=== PATIENT | male | born 1955 | race Caucasian/White ===

== ENCOUNTER 2017-12-31 09:05 | Outpatient (CLI) ==
--- NOTE | 2017-12-31 22:27 | MRI ---
EXAM: Lumbar spine MRI without contrast. HISTORY: Lower extremity weakness. COMPARISON: None. TECHNIQUE: Multiplanar, multisequence MR images were acquired lumbar spine without contrast. FINDINGS: Conus medullaris ends at L1 and has normal morphology and normal signal intensity. Canal diameter is developmentally narrow. Five [id number] lumbar vertebra are present. There is chiqui r mid lumbar levoscoliosis and 1.5 mm retrolisthesis of L1 on L2, 2 mm retrolisthesis of L2 on L3 and 3.7 mm retrolisthesis of L5 on S1. The superior endplate of S1 is smaller than the inferior endplat e of L5. Small ventral and lateral osteophytes are present in the lumbar spine and there is disc ami iccation at L1-2 and L5-S1 with mild irregular concavity of the endplates at L1-2 and L2-3. There is a chronic Schmorl's node along the L1 inferior endplate. There is a small chronic Schmorl's node al wilman the posterior L2 inferior endplate with a rim of dark T1, T2 and STIR signal sclerosis and surrou nding bright STIR signal edema. There is mild bright STIR signal in the adjacent intervertebral disc that may represent residual hydration or edema. Edema is favored. This may represent a recent Schm orl's node formation. There is moderate posterior disc space narrowing at L5-S1. The partially visualized liver, spleen and left kidney are unremarkable. A 6 mm simple cyst is prese nt in the right kidney. L1-2: There is a mild disc bulge and small left paracentral disc extrusion with inferior migration. In this patient with a narrow canal, there is mild right and mild to moderate left neural foraminal stenosis. There is no central canal stenosis. L2-3: There is a diffuse disc bulge with small left far endplate osteophytes and mild bilateral hype rtrophic facet arthropathy and ligamentum flavum hypertrophy. This causes mild spinal stenosis and m ild to moderate left and moderate right neural foraminal stenosis with encroachment on both L2 nerves . AP diameter of the thecal sac is 7.3 mm. L3-4: There is a mild disc bulge and bilateral facet arthropathy and ligamentum flavum hypertrophy. There is mild right and minor left neural foraminal stenosis. L4-5: There is a diffuse disc bulge and a small central disc protrusion. Mild to moderate bilateral facet arthropathy and ligamentum flavum hypertrophy is present which produces narrowing of the poste rolateral thecal sac without central canal stenosis. There is mild to moderate right and mild left n eural foraminal stenosis. L5-S1: There is retrolisthesis of L5 on S1 and there is a minor diffuse disc osteophyte complex that is asymmetric to the left and a small more focal central component. There is mild left and minor ri ght foraminal stenosis. There is no central canal stenosis. IMPRESSION: 1. Mild to moderate lumbar degenerative spondylosis with mild spinal stenosis at L2-3. 2. Small disc herniations L1-2 and L4-5. 3. Multilevel foraminal stenosis.
--- NOTE | 2017-12-31 23:09 | MRI ---
EXAM: Cervical spine MRI without contrast. HISTORY: Lower extremity weakness. COMPARISON: None. TECHNIQUE: Multiplanar, multisequence MR images were acquired of the cervical spine without contrast . FINDINGS: The craniocervical junction is normal and the cervical cord has no abnormal T2 hyperintens ity. There is mild accentuation of the usual cervical lordosis and 1.5 mm retrolisthesis of C3 on C4 and C4 on C5. The cervical vertebra are normal in height. Intrinsic bone marrow signal is mildly h eterogeneous with small areas of increased fatty infiltration. There is ventral spondylosis with min or degenerative endplate changes and disc space narrowing at C3-4 and C4-5. At C5-6, there is osteop hytosis with disc space narrowing, endplate irregularity and moderate mixed modic type 1 and type 2 e ndplate changes. There is a 3 mm cyst in the left false focal fold. There are no paravertebral masses . Minor left apical pleural thickening is present. C2-3: The intervertebral disc is normal. C3-4: There is a posterior disc osteophyte complex that is asymmetric to the left with a small centr al and left paracentral disc protrusion that minimally indents the cervical cord. Ligamentum flavum hypertrophy, bilateral uncovertebral hypertrophy and mild bilateral facet arthropathy is present. Th ere is mild spinal stenosis and mild right and moderate left neural foraminal stenosis. AP diameter of the thecal sac is 8.5 mm. C4-5: There is a posterior disc osteophyte complex and small central disc extrusion that minimally i ndents the cervical cord. Ligamentum flavum hypertrophy, bilateral uncovertebral hypertrophy and mil d right and minor left facet arthropathy is present. There is minor central canal stenosis and sever e bilateral foraminal stenosis. AP diameter of the thecal sac is 9.4 mm. C5-6: There is a posterior disc osteophyte complex, ligamentum flavum hypertrophy and bilateral hype rtrophic facet arthropathy. There is minor spinal stenosis and moderate left and severe right neural foraminal stenosis. AP diameter of the thecal sac is 9.6 mm. C6-7: There is a diffuse disc osteophyte complex that mildly indents the cervical cord. Ligamentum flavum hypertrophy and bilateral uncovertebral hypertrophy are present. There is mild spinal stenosi s and moderate bilateral foraminal stenosis. AP diameter of the thecal sac is 8.6 mm. C7-T1: There is a minor left posterior disc bulge without central canal stenosis. Neural foramina a re patent. IMPRESSION: 1. Mild to moderate cervical degenerative spondylosis with minor C4-5 and C5-6 and mild C3-4 and C6- 7 central canal stenosis. 2. Small disc herniations C3-4 and C4-5. 3. Multilevel high-grade foraminal stenosis.
== END 2017-12-31 09:06 | disposition home or self-care (01) ==
LOC: RAD 09:05
PROVIDERS: ATTEND Family Medicine
DX: R29.898 Other symptoms and signs involving the musculoskeletal system (principal)

== ENCOUNTER 2022-11-06 04:31 | Inpatient (IN) ==
[2022-11-06] MEDS ORDERED: MORPHINE 4 MG/ML SYRINGE IVP ONE (04:58)
[2022-11-06] MEDS ORDERED: SODIUM CHLORIDE 1,000 ML IV STA ×2 (04:58→06:30)
--- NOTE | 2022-11-06 05:16 | ED.PDOC ---
General <FAUSTINO RODRIGUEZ MD - Last Filed: 11/11/22 04:05> ED Provider: Dr. FAUSTINO RODRIGUEZ MD Chief Complaint: Abdominal Pain Stated Complaint: abdominal pain, nuasea and vomiting for 1-2 days. Time Seen by Provider: 11/06/22 04:58 Mode of Arrival: Walk-In Information Source: Patient and Family Exam Limitations: No limitations Primary Care Provider: BILLIE CHIRINOS Seen Within Last 72 Hours for Same Complaint By: ED Nursing and Triage Documentation Reviewed and Agree: Yes Does patient meet sepsis criteria?: No System Inflammatory Response Syndrome: Not Applicable Sepsis Protocol: For patient's 13 years and over: Temp is 96.8 and below OR 101 and greater Pulse >90 BPM Resp >20/minute Acutely Altered Mental Status Are patient's symptoms suggestive of a new infection, such as: -Pneumonia -Skin, Soft Tissue -Endocarditis -UTI -Bone, Joint Infection -Implantable Device -Acute Abdominal Infection -Wound Infection -Meningitis -Blood Stream Catheter Infection -Unknown GI Complaint Exam <FAUSTINO RODRIGUEZ MD - Last Filed: 11/11/22 04:05> Abdominal Pain Complaint/Exam Onset: Sudden Duration: 2 days Symptoms Are: Still present Timing: Constant Initial Severity: Moderate Current Severity: Moderate Location of Pain: Diffuse Character: Reports Aching and Burning Aggravating: Reports Eating Alleviating: Reports None Associated Signs and Symptoms: Denies Diaphoresis, Fever, Cough, Chest pain, Dizziness, Back pain, Constipation or Blood in stool AAA Risk Factors: Reports None Cardiac Risk Factors: Reports Hypertension and Elevated lipids Testicular Torsion Risk Factors: Reports None Surgical Obstruction Risk Factors: Reports Bilious emesis and Prior abdominal surgery Related Surgical History: Reports Cholecystectomy and Appendectomy Abdominal Findings: Present None; Absent Pulsatile mass, Abdominal distention, Rebound tenderness or Peritoneal signs Differential Diagnoses: ACS, Bowel Obstruction, Diverticulitis, Gastroenteritis, Pancreatitis, Irritable Bowel Syndrome, Ureteral Stone, Ischemic Bowel and PUD Review of Systems <FAUSTINO RODRIGUEZ MD - Last Filed: 11/11/22 04:05> Review Of Systems Constitutional: Reports No symptoms; Denies Chills, Diaphoresis or Fever Eyes: Reports No symptoms Ears, Nose, Mouth, Throat: Reports No symptoms Respiratory: Reports No symptoms Cardiac: Reports No symptoms GI: Reports Abdominal pain, Nausea and Vomiting; Denies Diarrhea, Difficulty swallowing or Rectal bleeding : Reports No symptoms Musculoskeletal: Reports No symptoms Skin: Reports No symptoms Neurological: Reports No symptoms Endocrine: Reports No symptoms Hematologic/Lymphatic: Reports No symptoms All Other Systems: Reviewed and Negative PFSH <FAUSTINO RODRIGUEZ MD - Last Filed: 11/11/22 04:05> Medical History (Updated 11/06/22 @ 09:48 by LM MARY) Collapsed lung J98.19 - Other pulmonary collapse (ICD-10) COPD (chronic obstructive pulmonary disease) J44.9 - Chronic obstructive pulmonary disease, unspecified (ICD-10) GERD (gastroesophageal reflux disease) K21.9 - Gastro-esophageal reflux disease without esophagitis (ICD-10) Hypertension I10 - Essential (primary) hypertension (ICD-10) Pulmonary embolism I26.99 - Other pulmonary embolism without acute cor pulmonale (ICD-10) Family History Other No known health problems Social History Smoking and tobacco status: Former smoker Smokeless tobacco user: chewing tobacco Alcohol intake: current Substance use type: does not use Varsha/orthodoxy: NONDENOMINATIONAL Household members: spouse Housing: house Lives independently: Yes Number of children: 2 Number of grandchildren: 3 Highest education level completed: some college, no degree service: No Current occupational status: retired Previous occupational history: SourceMedical Leisure activites: fishing History of recent travel: No Sexually active: Yes Do you think of yourself as: straight/heterosexual Current gender identity: male Seatbelt use: always Drives intoxicated or rides with intoxicated 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 Water heater temperature set < 120 degrees: Yes Working smoke detector in home: Yes Fire extinguisher in home: Yes Surgical History History of appendectomy Z90.49 - Acquired absence of other specified parts of digestive tract (ICD- 10) Hx of cholecystectomy Z90.49 - Acquired absence of other specified parts of digestive tract (ICD- 10) Physical Exam <FAUSTINO RODRIGUEZ MD - Last Filed: 11/11/22 04:05> Physical Exam Appearance: Reports Ill-appearing and Well-nourished Ill-appearing: Mild Pain Distress: Mild Eyes: Reports AMELIE, EOMI and Conjunctiva clear ENT: Reports Not Examined Neck: Supple Respiratory: Reports Airway patent, Breath sounds clear and Breath sounds equal; Denies Crackles, Rhonchi, Wheezes or Retractions Cardiovascular: Reports RRR and No murmur GI/: Reports Soft, Bowel sounds normal and Tender Musculoskeletal: Reports Not Examined Skin: Reports Warm and Dry Neurological: Reports Alert, Oriented and Not Examined Psychiatric: Reports Affect appropriate Interpretation <FAUSTINO RODRIGUEZ MD - Last Filed: 11/11/22 04:05> EKG Interpretation EKG Interpretation By: ED Physician Time of EKG #1: 05:06 Rate: Normal Rhythm: Sinus Ectopy: None [employer]: [place] Segment: Normal EKG Comparison: No significant changes <LYNN JOEL MD - Last Filed: 11/13/22 13:05> EKG Interpretation EKG Interpretation By: ED Physician Time of EKG #2: 07:15 Rate: Normal (77) Rhythm: Sinus Ectopy: None [employer]: [place] Segment: Normal EKG Interpretation: Nonspecific intraventricular block EKG Comparison: No significant changes (EKG interpretation by ED physician) Critical Care Note <FAUSTINO RODRIGUEZ MD - Last Filed: 11/11/22 04:05> Critical Care Note Total Critical Care Time (mins): 0 Course <FAUSTINO RODRIGUEZ MD - Last Filed: 11/11/22 04:05> Course 11/08/22 04:48 11/08/22 04:48 Orders, Labs, Meds: Lab Review 11/06/22 11/06/22 11/06/22 03:25 05:15 05:50 WBC 9.26 RBC 5.02 Hgb 16.4 Hct 46.6 MCV 92.8 MCH 32.7 H MCHC 35.2 RDW Coeff of [place] 12.8 Plt Count 236 Immature Gran % (Auto) 0.2 Neut % (Auto) 77.0 H Lymph % (Auto) 15.2 [place]ole % (Auto) 7.3 Eos % (Auto) 0.2 Baso % (Auto) 0.1 Neut # (Auto) 7.1 H Lymph # (Auto) 1.4 [place]ole # (Auto) 0.7 Eos # (Auto) 0.0 Baso # (Auto) 0.0 Immature Gran # (Auto) 0.0 Sodium 126.5 L Potassium 4.93 Chloride 94.1 L Carbon Dioxide 28.9 Anion Gap 8.43 BUN 7.6 L Creatinine 0.79 Estimated GFR (MDRD) 98.00 BUN/Creatinine Ratio 9.62 Glucose 115.6 H Serum Osmolality 260 L Lactic Acid 1.26 Calcium 9.27 Total Bilirubin 1.05 AST 24.0 ALT 23.3 Alkaline Phosphatase 76.2 Troponin I < 0.012 Total Protein 6.86 Albumin 4.16 Globulin 2.70 Albumin/Globulin Ratio 1.54 Lipase 285.2 Urine Color Urine Clarity Urine pH Ur Specific [place] Urine Protein Urine Glucose (UA) Urine Ketones Urine Blood Urine Nitrite Urine Bilirubin Urine Urobilinogen Ur Leukocyte Esterase Ur Squamous Epith Cells Urine Osmolality 262 11/06/22 06:10 WBC RBC Hgb Hct MCV MCH MCHC RDW Coeff of [place] Plt Count Immature Gran % (Auto) Neut % (Auto) Lymph % (Auto) [place] % (Auto) Eos % (Auto) Baso % (Auto) Neut # (Auto) Lymph # (Auto) [place] # (Auto) Eos # (Auto) Baso # (Auto) Immature Gran # (Auto) Sodium Potassium Chloride Carbon Dioxide Anion Gap BUN Creatinine Estimated GFR (MDRD) BUN/Creatinine Ratio Glucose Serum Osmolality Lactic Acid Calcium Total Bilirubin AST ALT Alkaline Phosphatase Troponin I Total Protein Albumin Globulin Albumin/Globulin Ratio Lipase Urine Color Yellow Urine Clarity Clear Urine pH 6.5 Ur Specific [place] 1.010 Urine Protein Negative Urine Glucose (UA) Negative Urine Ketones 1+ H Urine Blood Trace-intact H Urine Nitrite Negative Urine Bilirubin Negative Urine Urobilinogen 0.2 Ur Leukocyte Esterase Negative Ur Squamous Epith Cells Not present Urine Osmolality Orders Category Date Time Status ADMIT PATIENT INPATIENT .TO [facility] (MONITORED BED) ADMISSION 11/06/22 08:11 Completed EKG-(ED ONLY) Stat CARDIO 11/06/22 04:58 Completed EKG-(ED ONLY) Stat CARDIO 11/06/22 06:36 Completed ACTIVITY .Early Mobilization for VTE Prevention CARE 11/06/22 08:11 Completed INTAKE & OUTPUT Q8HR CARE 11/06/22 08:11 Completed NPO REMINDER: IMAGING ONCE CARE 11/06/22 04:58 Completed TELEMETRY MONITORING TELE CARE 11/06/22 08:11 Completed VITAL SIGNS Q8HR CARE 11/06/22 08:11 Completed CBC W/ AUTO DIFF DAILY@0600 LAB 11/07/22 04:40 Completed CBC W/ AUTO DIFF DAILY@0600 LAB 11/08/22 04:48 Completed CBC W/ AUTO DIFF Stat LAB 11/06/22 05:15 Completed CMP [COMPREHENSIVE METABOLIC PANEL] Stat LAB 11/06/22 05:15 Completed COMPREHENSIVE METABOLIC PANEL DAILY@0600 LAB 11/07/22 04:40 Completed COMPREHENSIVE METABOLIC PANEL DAILY@0600 LAB 11/08/22 04:48 Completed LACTIC ACID Stat LAB 11/06/22 05:15 Completed LIPASE Stat LAB 11/06/22 05:15 Completed OSMOLALITY,URINE Routine LAB 11/06/22 03:25 Completed SERUM OSMOLALITY Routine LAB 11/06/22 03:25 Completed SODIUM,URINE Routine LAB 11/06/22 13:50 Completed TROPONIN I Stat LAB 11/06/22 05:50 Completed URINALYSIS C & S IF INDICATED Stat LAB 11/06/22 06:10 Completed Acetaminophen [Tylenol] Meds 11/06/22 08:11 Discontinued 650 mg PO Q4H PRN Ketorolac Tromethamine [Toradol] Meds 11/06/22 06:30 Discontinued 30 mg IVP ONCE STA Metoclopramide HCl [Reglan] Meds 11/06/22 06:30 Discontinued 10 mg IVP ONCE ONE Morphine Sulfate [Morphine 4 mg/ml Syringe] Meds 11/06/22 04:58 Discontinued 4 mg IVP ONCE ONE Ondansetron HCl/Pf [Zofran 4 mg/2 ml] Meds 11/06/22 08:14 Discontinued 4 mg IVP Q6H PRN Sodium Chloride 0.9% [Sodium Chloride] 1,000 ml Meds 11/06/22 08:30 Discontinued IV 125 mls/hr Sodium Chloride 0.9% [Sodium Chloride] 1,000 ml Meds 11/06/22 04:58 Discontinued IV BOLUS Sodium Chloride 0.9% [Sodium Chloride] 1,000 ml Meds 11/06/22 06:30 Discontinued IV BOLUS RESUSCITATION STATUS Routine OTHERS 11/06/22 08:[address] ABDOMEN/PELVIS W CONTRAST Stat RADS 11/06/22 04:58 Completed Medications Discontinued Medications Generic Name Dose Route Start Last Admin Trade Name Freq PRN Reason Stop Dose Admin Acetaminophen 650 mg 11/06/22 08:11 Acetaminophen 325 Mg Tablet PO Q4H PRN Mild Pain Albuterol Sulfate 2 puff 11/06/22 09:20 11/08/22 07:50 Albuterol Sulfate 8 Gm Inhaler IH 2 puff Q4H PRN Administration Wheezing Apixaban 5 mg 11/06/22 09:30 11/08/22 09:40 Apixaban 5 Mg Tab PO 5 mg BID CAMILLA Administration Atorvastatin Calcium 40 mg 11/06/22 17:00 11/07/22 01:25 Atorvastatin Calcium 20 Mg Tablet PO Not Given QPM CAM[place]A Atorvastatin Calcium 40 mg 11/06/22 21:00 11/07/22 20:43 Atorvastatin Calcium 20 Mg Tablet PO 40 mg BEDTIME [place]A Administration Baclofen 5 mg 11/06/22 09:30 11/08/22 09:39 Baclofen 10 Mg Tablet PO 5 mg BID [place] Administration Famotidine 20 mg 11/07/22 10:00 11/08/22 05:33 Famotidine 20 Mg Tablet PO 20 mg BIDAC [place] Administration Fluticasone Propionate 1 spray 11/06/22 09:20 11/08/22 07:48 Fluticasone Propionate 16 Gm Nasal Carney FAHAD 1 spray DAILY PRN Administration Allergy Symptoms Sodium Chloride 1,000 mls @ 1,000 mls/hr 11/06/22 04:58 11/06/22 05:16 Sodium Chloride IV 11/06/22 05:57 1,000 mls/hr BOLUS STA Administration Sodium Chloride 1,000 mls @ 1,000 mls/hr 11/06/22 06:30 11/06/22 06:37 Sodium Chloride IV 11/06/22 07:29 1,000 mls/hr BOLUS STA Administration Sodium Chloride 1,000 mls @ 125 mls/hr 11/06/22 08:30 11/08/22 01:46 Sodium Chloride IV 125 mls/hr .Q8H [place] Administration Ketorolac Tromethamine 30 mg 11/06/22 06:30 11/06/22 06:37 Ketorolac Tromethamine 30 Mg/Ml Vial IVP 11/06/22 06:31 30 mg ONCE STA Administration Ketorolac Tromethamine 15 mg 11/06/22 09:18 11/08/22 05:33 Ketorolac Tromethamine 15 Mg/Ml Vial IVP 11/10/22 09:20 15 mg Q6HR PRN Administration MODERATE PAIN Metoclopramide HCl 10 mg 11/06/22 06:30 11/06/22 06:37 Metoclopramide Hcl 10 Mg/2 Ml IVP 11/06/22 06:31 10 mg ONCE ONE Administration Metoclopramide HCl 10 mg 11/06/22 09:18 11/07/22 10:57 Metoclopramide Hcl 10 Mg/2 Ml IVP 10 mg Q6H PRN Administration Nausea / Vomiting Metoprolol Succinate 25 mg 11/06/22 09:30 11/06/22 11:20 Metoprolol Succinate 25 Mg Tab.Er.24h PO Not Given DAILY CAMILLA Metoprolol Succinate 25 mg 11/06/22 21:00 11/07/22 20:42 Metoprolol Succinate 25 Mg Tab.Er.24h PO 25 mg BEDTIME [place]ILLA Administration Morphine Sulfate 4 mg 11/06/22 04:58 11/06/22 05:15 Morphine Sulfate 4 Mg/Ml Syringe IVP 11/06/22 04:59 4 mg ONCE ONE Administration Olmesartan 20 mg 11/06/22 09:30 11/08/22 09:37 Olmesartan Medoxomil 20 Mg Tablet PO 20 mg DAILY [place] Administration Omeprazole 20 mg 11/06/22 09:30 11/07/22 05:53 Omeprazole 20 Mg Capsule. PO 20 mg BIDAC [place] Administration Ondansetron HCl 4 mg 11/06/22 08:14 11/08/22 07:54 Ondansetron Hcl/Pf 4 Mg/2 Ml Sdv IVP 4 mg Q6H PRN Administration Nausea / Vomiting Pantoprazole Sodium 40 mg 11/06/22 09:30 11/07/22 05:52 Pantoprazole Sodium 40 Mg Tablet. PO 40 mg QDAC [place] Administration Pantoprazole Sodium 40 mg 11/07/22 17:00 Pantoprazole Sodium 40 Mg Tablet. PO BIDAC [place]ILLA Pantoprazole Sodium 40 mg 11/07/22 21:00 11/08/22 09:36 Pantoprazole Sodium 40 Mg Vial IVP 40 mg BID [place] Administration Sodium Chloride 1 gm 11/07/22 09:00 11/08/22 09:38 Sodium Chloride 1 Gm Tablet PO 1 gm TID CAMILLA Administration Vital Signs: Temp Pulse Resp BP Pulse Ox 11/06/22 08:34 97.5 F L 67 16 98 11/06/22 04:33 97.5 F L 76 20 179/84 H 97 <LYNN JOEL MD - Last Filed: 11/13/22 13:05> Course Orders, Labs, Meds: Lab Review 11/06/22 11/06/22 11/06/22 03:25 05:15 05:50 WBC 9.26 RBC 5.02 Hgb 16.4 Hct 46.6 MCV 92.8 MCH 32.7 H MCHC 35.2 RDW Coeff of [place] 12.8 Plt Count 236 Immature Gran % (Auto) 0.2 Neut % (Auto) 77.0 H Lymph % (Auto) 15.2 [place] % (Auto) 7.3 Eos % (Auto) 0.2 Baso % (Auto) 0.1 Neut # (Auto) 7.1 H Lymph # (Auto) 1.4 [place] # (Auto) 0.7 Eos # (Auto) 0.0 Baso # (Auto) 0.0 Immature Gran # (Auto) 0.0 Sodium 126.5 L Potassium 4.93 Chloride 94.1 L Carbon Dioxide 28.9 Anion Gap 8.43 BUN 7.6 L Creatinine 0.79 Estimated GFR (MDRD) 98.00 BUN/Creatinine Ratio 9.62 Glucose 115.6 H Serum Osmolality 260 L Lactic Acid 1.26 Calcium 9.27 Total Bilirubin 1.05 AST 24.0 ALT 23.3 Alkaline Phosphatase 76.2 Troponin I < 0.012 Total Protein 6.86 Albumin 4.16 Globulin 2.70 Albumin/Globulin Ratio 1.54 Lipase 285.2 Urine Color Urine Clarity Urine pH Ur Specific [place] Urine Protein Urine Glucose (UA) Urine Ketones Urine Blood Urine Nitrite Urine Bilirubin Urine Urobilinogen Ur Leukocyte Esterase Ur Squamous Epith Cells Urine Osmolality 262 11/06/22 06:10 WBC RBC Hgb Hct MCV MCH MCHC RDW Coeff of [place] Plt Count Immature Gran % (Auto) Neut % (Auto) Lymph % (Auto) [place] % (Auto) Eos % (Auto) Baso % (Auto) Neut # (Auto) Lymph # (Auto) [place] # (Auto) Eos # (Auto) Baso # (Auto) Immature Gran # (Auto) Sodium Potassium Chloride Carbon Dioxide Anion Gap BUN Creatinine Estimated GFR (MDRD) BUN/Creatinine Ratio Glucose Serum Osmolality Lactic Acid Calcium Total Bilirubin AST ALT Alkaline Phosphatase Troponin I Total Protein Albumin Globulin Albumin/Globulin Ratio Lipase Urine Color Yellow Urine Clarity Clear Urine pH 6.5 Ur Specific [place] 1.010 Urine Protein Negative Urine Glucose (UA) Negative Urine Ketones 1+ H Urine Blood Trace-intact H Urine Nitrite Negative Urine Bilirubin Negative Urine Urobilinogen 0.2 Ur Leukocyte Esterase Negative Ur Squamous Epith Cells Not present Urine Osmolality Orders Category Date Time Status ADMIT PATIENT INPATIENT .TO [facility] (MONITORED BED) ADMISSION 11/06/22 08:11 Completed EKG-(ED ONLY) Stat CARDIO 11/06/22 04:58 Completed EKG-(ED ONLY) Stat CARDIO 11/06/22 06:36 Completed ACTIVITY .Early Mobilization for VTE Prevention CARE 11/06/22 08:11 Completed INTAKE & OUTPUT Q8HR CARE 11/06/22 08:11 Completed NPO REMINDER: IMAGING ONCE CARE 11/06/22 04:58 Completed TELEMETRY MONITORING TELE CARE 11/06/22 08:11 Completed VITAL SIGNS Q8HR CARE 11/06/22 08:11 Completed CBC W/ AUTO DIFF DAILY@0600 LAB 11/07/22 04:40 Completed CBC W/ AUTO DIFF DAILY@0600 LAB 11/08/22 04:48 Completed CBC W/ AUTO DIFF Stat LAB 11/06/22 05:15 Completed CMP [COMPREHENSIVE METABOLIC PANEL] Stat LAB 11/06/22 05:15 Completed COMPREHENSIVE METABOLIC PANEL DAILY@0600 LAB 11/07/22 04:40 Completed COMPREHENSIVE METABOLIC PANEL DAILY@0600 LAB 11/08/22 04:48 Completed LACTIC ACID Stat LAB 11/06/22 05:15 Completed LIPASE Stat LAB 11/06/22 05:15 Completed OSMOLALITY,URINE Routine LAB 11/06/22 03:25 Completed SERUM OSMOLALITY Routine LAB 11/06/22 03:25 Completed SODIUM,URINE Routine LAB 11/06/22 13:50 Completed TROPONIN I Stat LAB 11/06/22 05:50 Completed URINALYSIS C & S IF INDICATED Stat LAB 11/06/22 06:10 Completed Acetaminophen [Tylenol] Meds 11/06/22 08:11 Discontinued 650 mg PO Q4H PRN Ketorolac Tromethamine [Toradol] Meds 11/06/22 06:30 Discontinued 30 mg IVP ONCE STA Metoclopramide HCl [Reglan] Meds 11/06/22 06:30 Discontinued 10 mg IVP ONCE ONE Morphine Sulfate [Morphine 4 mg/ml Syringe] Meds 11/06/22 04:58 Discontinued 4 mg IVP ONCE ONE Ondansetron HCl/Pf [Zofran 4 mg/2 ml] Meds 11/06/22 08:14 Discontinued 4 mg IVP Q6H PRN Sodium Chloride 0.9% [Sodium Chloride] 1,000 ml Meds 11/06/22 08:30 Discontinued IV 125 mls/hr Sodium Chloride 0.9% [Sodium Chloride] 1,000 ml Meds 11/06/22 04:58 Discontinued IV BOLUS Sodium Chloride 0.9% [Sodium Chloride] 1,000 ml Meds 11/06/22 06:30 Discontinued IV BOLUS RESUSCITATION STATUS Routine OTHERS 11/06/22 08:[address] ABDOMEN/PELVIS W CONTRAST Stat RADS 11/06/22 04:58 Completed Medications Discontinued Medications Generic Name Dose Route Start Last Admin Trade Name Freq PRN Reason Stop Dose Admin Acetaminophen 650 mg 11/06/22 08:11 Acetaminophen 325 Mg Tablet PO Q4H PRN Mild Pain Albuterol Sulfate 2 puff 11/06/22 09:20 11/08/22 07:50 Albuterol Sulfate 8 Gm Inhaler IH 2 puff Q4H PRN Administration Wheezing Apixaban 5 mg 11/06/22 09:30 11/08/22 09:40 Apixaban 5 Mg Tab PO 5 mg BID CAM[place]A Administration Atorvastatin Calcium 40 mg 11/06/22 17:00 11/07/22 01:25 Atorvastatin Calcium 20 Mg Tablet PO Not Given QPM CAMILLA Atorvastatin Calcium 40 mg 11/06/22 21:00 11/07/22 20:43 Atorvastatin Calcium 20 Mg Tablet PO 40 mg BEDTIME CAMILLA Administration Baclofen 5 mg 11/06/22 09:30 11/08/22 09:39 Baclofen 10 Mg Tablet PO 5 mg BID [place] Administration Famotidine 20 mg 11/07/22 10:00 11/08/22 05:33 Famotidine 20 Mg Tablet PO 20 mg BIDAC [place] Administration Fluticasone Propionate 1 spray 11/06/22 09:20 11/08/22 07:48 Fluticasone Propionate 16 Gm Nasal Carney FAHAD 1 spray DAILY PRN Administration Allergy Symptoms Sodium Chloride 1,000 mls @ 1,000 mls/hr 11/06/22 04:58 11/06/22 05:16 Sodium Chloride IV 11/06/22 05:57 1,000 mls/hr BOLUS STA Administration Sodium Chloride 1,000 mls @ 1,000 mls/hr 11/06/22 06:30 11/06/22 06:37 Sodium Chloride IV 11/06/22 07:29 1,000 mls/hr BOLUS STA Administration Sodium Chloride 1,000 mls @ 125 mls/hr 11/06/22 08:30 11/08/22 01:46 Sodium Chloride IV 125 mls/hr .Q8H [place] Administration Ketorolac Tromethamine 30 mg 11/06/22 06:30 11/06/22 06:37 Ketorolac Tromethamine 30 Mg/Ml Vial IVP 11/06/22 06:31 30 mg ONCE STA Administration Ketorolac Tromethamine 15 mg 11/06/22 09:18 11/08/22 05:33 Ketorolac Tromethamine 15 Mg/Ml Vial IVP 11/10/22 09:20 15 mg Q6HR PRN Administration MODERATE PAIN Metoclopramide HCl 10 mg 11/06/22 06:30 11/06/22 06:37 Metoclopramide Hcl 10 Mg/2 Ml IVP 11/06/22 06:31 10 mg ONCE ONE Administration Metoclopramide HCl 10 mg 11/06/22 09:18 11/07/22 10:57 Metoclopramide Hcl 10 Mg/2 Ml IVP 10 mg Q6H PRN Administration Nausea / Vomiting Metoprolol Succinate 25 mg 11/06/22 09:30 11/06/22 11:20 Metoprolol Succinate 25 Mg Tab.Er.24h PO Not Given DAILY CAMILLA Metoprolol Succinate 25 mg 11/06/22 21:00 11/07/22 20:42 Metoprolol Succinate 25 Mg Tab.Er.24h PO 25 mg BEDTIME [place]A Administration Morphine Sulfate 4 mg 11/06/22 04:58 11/06/22 05:15 Morphine Sulfate 4 Mg/Ml Syringe IVP 11/06/22 04:59 4 mg ONCE ONE Administration Olmesartan 20 mg 11/06/22 09:30 11/08/22 09:37 Olmesartan Medoxomil 20 Mg Tablet PO 20 mg DAILY [place] Administration Omeprazole 20 mg 11/06/22 09:30 11/07/22 05:53 Omeprazole 20 Mg Capsule.Dr PO 20 mg BIDAC [place]A Administration Ondansetron HCl 4 mg 11/06/22 08:14 11/08/22 07:54 Ondansetron Hcl/Pf 4 Mg/2 Ml Sdv IVP 4 mg Q6H PRN Administration Nausea / Vomiting Pantoprazole Sodium 40 mg 11/06/22 09:30 11/07/22 05:52 Pantoprazole Sodium 40 Mg Tablet. PO 40 mg QDAC [place] Administration Pantoprazole Sodium 40 mg 11/07/22 17:00 Pantoprazole Sodium 40 Mg Tablet. PO BIDAC CAMILLA Pantoprazole Sodium 40 mg 11/07/22 21:00 11/08/22 09:36 Pantoprazole Sodium 40 Mg Vial IVP 40 mg BID CMAILLA Administration Sodium Chloride 1 gm 11/07/22 09:00 11/08/22 09:38 Sodium Chloride 1 Gm Tablet PO 1 gm TID [place] Administration Vital Signs: Temp Pulse Resp BP Pulse Ox 11/06/22 08:34 97.5 F L 67 16 98 11/06/22 04:33 97.5 F L 76 20 179/84 H 97 Assumed care of patient at 0700 on shift change after check-out by Dr Rodriguez. He presented with several days of generalized abdominal pain with N/V. ECGs, both initial and repeat, were non-acute. Labs reveal a moderate to severe hyponatremia (Na/CL 126.5/94.1). The remainder of the labs were essentially WNL. CT abd/pelvis reported "No inflammatory process, bowel or urinary obstruction. No acute findings of the abdomen and pelvis.". I spoke with the Hospitalist WEAVE ROOM SUPERVISOR, Andre Houston, who accepted the patient for an Observation stay. He was in stable condition when transported from the ED to the medical floor. Discharge Plan Discharge Patient Disposition: PLACED OBSERVATION Discharge Problem: Acute hyponatremia Did you review [place] [employer] for ALL controlled substances?: Not Applicable ED Provider: LYNN JOEL Condition: Stable <FAUSTINO RODRIGUEZ MD - Last Filed: 11/11/22 04:05> Physician Progress Note: []
[2022-11-06 05:19] LABS: BASOPHILS % (AUTO) 0.1 % (0.0-3.0); EOSINOPHILS % (AUTO) 0.2 % (0.0-7.0); HEMATOCRIT 46.6 % (42.0-52.0); HEMOGLOBIN 16.4 g/dl (14.0-18.0); IMMATURE GRANULOCYTE % (AUTO) 0.2 % (0.0-5.0); LYMPHOCYTES # (AUTO) 1.4 K/uL (0.60-3.4); LYMPHOCYTES % (AUTO) 15.2 (10.0-50.0); MEAN CORPUSCULAR HEMOGLOBIN 32.7 pg (27.0-31.0); MEAN CORPUSCULAR HGB CONC 35.2 (31.8-35.4); MEAN CORPUSCULAR VOLUME 92.8 fl (80.0-94.0); MONOCYTES # (AUTO) 0.7 K/uL (0.4-2.0); MONOCYTES % (AUTO) 7.3 (0-10); NEUTROPHILS # (AUTO) 7.1 K/ul (2.0-6.9); PLATELET COUNT 236 10^3/uL (140-440); RDW COEFFICIENT OF VARIATION 12.8 % (11.6-14.8); RED BLOOD COUNT 5.02 10^6/ul (4.70-6.10); WHITE BLOOD COUNT 9.26 K/ul (4.2-10.2)
[2022-11-06 05:31] LABS: ALANINE AMINOTRANSFERASE 23.3 U/L (0-50); ALBUMIN 4.16 g/dL (3.5-5.0); ALKALINE PHOSPHATASE 76.2 U/L (56-119); BILIRUBIN,TOTAL 1.05 mg/dL (0.2-1.3); BLOOD UREA NITROGEN 7.6 mg/dL (9-20); CALCIUM 9.27 mg/dL (8.4-10.2); CARBON DIOXIDE 28.9 mmol/L (22-30.0); CHLORIDE 94.1 mmol/L (98-107); CREATININE 0.79 mg/dL (0.60-1.10); GLUCOSE 115.6 mg/dL (74-106); LIPASE 285.2 U/L (23-300); POTASSIUM 4.93 mmol/L (3.5-5.1); SODIUM 126.5 mmol/L (134.5-145); TOTAL PROTEIN 6.86 g/dL (6.3-8.2)
[2022-11-06] MEDS ORDERED: REGLAN IVP ONE (06:30)
[2022-11-06] MEDS ORDERED: TORADOL IVP STA (06:30)
[2022-11-06 06:35] LABS: BILIRUBIN,URINE Negative (NEGATIVE); CLARITY,URINE Clear (CLEAR); COLOR,URINE Yellow (YELLOW); GLUCOSE, URINE (UA) Negative (NEGATIVE); KETONES,URINE 1+ (NEGATIVE); LEUKOCYTE ESTERASE ,URINE Negative (NEGATIVE); NITRITE,URINE Negative (NEGATIVE); PH,URINE 6.5 (5-9); PROTEIN,URINE Negative (NEGATIVE); URINE, BLOOD Trace-intact (NEGATIVE); UROBILINOGEN,URINE 0.2 (0.2)
--- NOTE | 2022-11-06 06:36 | CT ---
EXAM: CT OF THE ABDOMEN AND PELVIS WITH CONTRAST History: Right lower quadrant abdomen pain Technique: [address] of the abdomen and pelvis following intravenous contrast FINDINGS: Emphysema of the lung bases. No significant liver abnormality. The adrenals, pancreas an d spleen are unremarkable. The stomach and hiatus are unremarkable.Prior cholecystectomy. Normal ki dneys and proximal collecting system. The appendix is not seen. Bowel loops demonstrate normal cheng pauline. No inflamatory change seen in the mesentery or retroperitoneum. Atherosclerotic calcification of the aorta without aneurysm. Pelvic genitourinary structures appear normal. Pelvic bowel loops are unremarkable. No inflammatory change in the pelvic fat. No acute abnormality of the abdominal or pelvic skeleton. Impression: 1. No inflammatory process, bowel or urinary obstruction. No acute findings of the abdomen and pelv is. All CT scans are performed using dose optimization techniques as appropriate to the performed exam an d include at least one of the following: Automated exposure control, adjustment of the mA and/or kV according t o size, and the use of iterative reconstruction technique.
[2022-11-06 06:49] LABS: SQUAMOUS EPITHELIAL CELL,UR NOT PRESENT (0-5)
[2022-11-06] MEDS ORDERED: TYLENOL PO PRN (08:11)
[2022-11-06 08:48] VITALS: BMI 25.8
[2022-11-06] MEDS: SODIUM CHLORIDE 1,000 ML IV SCH ×2 (09:00→16:21)
[2022-11-06] MEDS ORDERED: VENTOLIN HFA IH PRN (09:20)
[2022-11-06] MEDS ORDERED: TOPROL XL PO SCH (09:30)
--- NOTE | 2022-11-06 09:57 | PCM ---
Date of Service Date Seen by Provider: 11/06/22 Time Seen by Provider: 09:15 Admit Day/Time Admission Date: 11/06/22 Reason for Admission Chief Complaint: [facility] Provider Hospital Provider: LM MARY, [facility] [place] Primary Care Physician: BILLIE CHIRINOS History of Present Illness History of Present Illness: 67 yo male presented to the ER with complaints of generalized weakness, abdominal pain, and vomiting. Patient states that his symptoms started on Wednesday with the abdominal pain and vomiting. Has not been able to eat or drink much since the vomiting began that night. States that the pain is in the upper quadrants and epigastric area of his abdomen and describes the pain as a burning. No aggravating or alleviating factors. Has hx of GERD and takes prilosec at home. Also drinks 5 beers daily. Denies any fever, chills, body aches, chest pain, SOB, or diarrhea. Case Discussed With Case Discussed With: Patient's case was discussed with the ER Physicians, Dr. Last [facility] Medical History (Updated 11/06/22 @ 09:48 by LM MARY) Collapsed lung J98.19 - Other pulmonary collapse (ICD-10) COPD (chronic obstructive pulmonary disease) J44.9 - Chronic obstructive pulmonary disease, unspecified (ICD-10) GERD (gastroesophageal reflux disease) K21.9 - Gastro-esophageal reflux disease without esophagitis (ICD-10) Hypertension I10 - Essential (primary) hypertension (ICD-10) Pulmonary embolism I26.99 - Other pulmonary embolism without acute cor pulmonale (ICD-10) Surgical History History of appendectomy Z90.49 - Acquired absence of other specified parts of digestive tract (ICD- 10) Hx of cholecystectomy Z90.49 - Acquired absence of other specified parts of digestive tract (ICD- 10) Family History Other No known health problems Social History Smoking and tobacco status: Former smoker Smokeless tobacco user: chewing tobacco Alcohol intake: current Substance use type: does not use Varsha/hindu: MU-ISM Household members: spouse Housing: house Lives independently: Yes Number of children: 2 Number of grandchildren: 3 Highest education level completed: some college, no degree service: No Current occupational status: retired Previous occupational history: [employer] Leisure activites: fishing History of recent travel: No Sexually active: Yes Do you think of yourself as: straight/heterosexual Current gender identity: male Seatbelt use: always Drives intoxicated or rides with intoxicated 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 Water heater temperature set < 120 degrees: Yes Working smoke detector in home: Yes Fire extinguisher in home: Yes Allergies Allergies Allergy/AdvReac Type Severity Reaction Status Date / Time No Known Allergies Allergy Unverified 11/06/22 04:57 Current Medications Home Medications albuterol sulfate 90 mcg/actuation aerosol inhaler (ProAir HFA) 2 inh inhalation Q4H PRN shortness of breath or wheezing 11/06/22 [History Confirmed 11/06/22 Last Taken Unknown] apixaban 5 mg tablet (Eliquis) 5 mg PO BID 11/06/22 [History Confirmed 11/06/22 Last Taken Unknown] atorvastatin 40 mg tablet 40 mg PO QPM 11/06/22 [History Confirmed 11/06/22 Last Taken Unknown] baclofen 5 mg tablet 5 mg PO BID 11/06/22 [History Confirmed 11/06/22 Last Taken Unknown] cetirizine 10 mg tablet (24Hour Allergy) 10 mg PO DAILY PRN allergy symptoms 11/06/22 [History Confirmed 11/06/22 Last Taken Unknown] fluticasone propionate 50 mcg/actuation nasal spray,suspension (Flonase Allergy Relief) 1 spray intranasal DAILY PRN allergy symptoms 11/06/22 [History Confirmed 11/06/22 Last Taken Unknown] metoprolol succinate 25 mg tablet,extended release 24 hr 25 mg PO DAILY 11/06/22 [History Confirmed 11/06/22 Last Taken Unknown] nitroglycerin 0.4 mg sublingual tablet 0.4 mg sublingual Q5M PRN chest pain 11/06/22 [History Confirmed 11/06/22 Last Taken Unknown] olmesartan 20 mg tablet 20 mg PO DAILY 11/06/22 [History Confirmed 11/06/22 Last Taken Unknown] omeprazole 20 mg capsule,delayed release 20 mg PO BID 11/06/22 [History Confirmed 11/06/22 Last Taken 11/05/22] Home Acetaminophen (Acetaminophen 325 Mg Tablet) 650 mg PO Q4H PRN PRN Reason: Mild Pain Albuterol Sulfate (Albuterol Sulfate 8 Gm Inhaler) 2 puff IH Q4H PRN PRN Reason: Wheezing Apixaban (Apixaban 5 Mg Tab) 5 mg PO BID [facility] Atorvastatin Calcium (Atorvastatin Calcium 20 Mg Tablet) 40 mg PO QPM [facility] Baclofen (Baclofen 10 Mg Tablet) 5 mg PO BID [facility] Fluticasone Propionate (Fluticasone Propionate 16 Gm Nasal [place]) 1 spray FAHAD DAILY PRN PRN Reason: Allergy Symptoms Sodium Chloride (Sodium Chloride) 1,000 mls @ 125 mls/hr IV .Q8H [facility] Last Admin: 11/06/22 09:00 Dose: 125 mls/hr Ketorolac Tromethamine (Ketorolac Tromethamine 15 Mg/Ml Vial) 15 mg IVP Q6HR PRN PRN Reason: MODERATE PAIN Stop: 11/10/22 09:20 Metoclopramide HCl (Metoclopramide Hcl 10 Mg/2 Ml) 10 mg IVP Q6H PRN PRN Reason: Nausea / Vomiting Metoprolol Succinate (Metoprolol Succinate 25 Mg Tab.Er.24h) 25 mg PO DAILY [facility] Olmesartan (Olmesartan Medoxomil 20 Mg Tablet) 20 mg PO DAILY [facility] Omeprazole (Omeprazole 20 Mg Capsule.) 20 mg PO BIDAC [facility] Ondansetron HCl (Ondansetron Hcl/Pf 4 Mg/2 Ml Sdv) 4 mg IVP Q6H PRN PRN Reason: Nausea / Vomiting Pantoprazole Sodium (Pantoprazole Sodium 40 Mg Tablet.) 40 mg PO QDAC [facility] Discontinued Medications Sodium Chloride (Sodium Chloride) 1,000 mls @ 1,000 mls/hr IV BOLUS STA Stop: 11/06/22 05:57 Last Admin: 11/06/22 05:16 Dose: 1,000 mls/hr Sodium Chloride (Sodium Chloride) 1,000 mls @ 1,000 mls/hr IV BOLUS STA Stop: 11/06/22 07:29 Last Admin: 11/06/22 06:37 Dose: 1,000 mls/hr Ketorolac Tromethamine (Ketorolac Tromethamine 30 Mg/Ml Vial) 30 mg IVP ONCE STA Stop: 11/06/22 06:31 Last Admin: 11/06/22 06:37 Dose: 30 mg Metoclopramide HCl (Metoclopramide Hcl 10 Mg/2 Ml) 10 mg IVP ONCE ONE Stop: 11/06/22 06:31 Last Admin: 11/06/22 06:37 Dose: 10 mg Morphine Sulfate (Morphine Sulfate 4 Mg/Ml Syringe) 4 mg IVP ONCE ONE Stop: 11/06/22 04:59 Last Admin: 11/06/22 05:15 Dose: 4 mg Review of Systems Constitutional: Reports Weakness Head: Reports Normocephalic Eyes: Reports No symptoms Ears: Reports No symptoms Nose: Reports No symptoms Mouth: Reports No symptoms Throat: Reports No symptoms Cardiovascular: Reports No symptoms Respiratory: Reports No symptoms Gastrointestinal: Reports Nausea, Vomiting, Heartburn and Abdominal pain (upper quadrants and epigastric area) Genitourinary: Reports No Symptoms Musculoskeletal: Reports No symptoms Endocrine: Reports No symptoms Hematology: Reports No symptoms Immunology: Reports No symptoms Neurological: Reports No symptoms Psychiatric: Reports No symptoms Physical examination Most Recent Vital Signs: Most Recent Vital Signs Temperature 97.5 F L 11/06/22 08:34 Temperature Source Oral 11/06/22 08:34 Temperature Source Infrared 11/06/22 04:33 Pulse Rate 67 11/06/22 08:34 Respiratory Rate 16 11/06/22 08:34 Blood Pressure 179/84 H 11/06/22 04:33 Blood Pressure Right Arm 146/85 11/06/22 08:34 Blood Pressure Position Supine 11/06/22 08:34 O2 Sat by Pulse Oximetry 98 11/06/22 08:34 Oxygen Delivery Method Room Air 11/06/22 08:34 Height 5 ft 8 in 11/06/22 08:34 Weight 169 lb 12.095 oz 11/06/22 08:34 Telemetry Type Remote Telemetry 11/06/22 09:15 Telemetry Monitoring Started 11/06/22 09:15 Telemetry Heart Rate 75 11/06/22 09:15 EKG UT Interval 0.19 11/06/22 09:15 EKG QRS Interval 0.06 11/06/22 09:15 Telemetry Strip Reading SR 11/06/22 09:15 Appearance: Positive Well-appearing, Well-nourished, No Apparent Distress and Alert and Oriented x3 Skin: Positive Warm, Good Turgor and Good Color HEENT: Positive Normocephalic and PERRLA Neck: Positive Supple and Midline Trachea Chest/Lungs: Positive Symmetrical With Equal Breath Sounds, Clear to Auscultation Bilaterally and Good Air Movement all 4 Lung Smith Heart: Positive RRR and Pulses Normal GI/: Positive Soft, Nontender, Bowel Sounds Normal, No Distention and No Organomegaly Musculoskeletal: Positive Normal Gait and Station Extremities: Positive Intact Peripheral Pulses, Stable Joints Without Laxity and Good ROM in All Joints Neurological: Positive Sensation Intact, Motor intact, Reflexes Intact, Alert, Oriented and Muscle Strength 5/5 in Upper and Lower Extremities Bilaterally Psychiatric: Positive Oriented x4, Appropriate Mood, Appropriate Affect, Intact Memory, Good Short-Term Recall, Normal Judgement and Normal Insight Labs This Visit Labs This Visit: Labs This Visit 11/06/22 11/06/22 11/06/22 05:15 05:50 06:10 WBC 9.26 RBC 5.02 Hgb 16.4 Hct 46.6 MCV 92.8 MCH 32.7 H MCHC 35.2 RDW Coeff of Carrington 12.8 Plt Count 236 Immature Gran % (Auto) 0.2 Neut % (Auto) 77.0 H Lymph % (Auto) 15.2 [place] % (Auto) 7.3 Eos % (Auto) 0.2 Baso % (Auto) 0.1 Neut # (Auto) 7.1 H Lymph # (Auto) 1.4 [place] # (Auto) 0.7 Eos # (Auto) 0.0 Baso # (Auto) 0.0 Immature Gran # (Auto) 0.0 Sodium 126.5 L Potassium 4.93 Chloride 94.1 L Carbon Dioxide 28.9 Anion Gap 8.43 BUN 7.6 L Creatinine 0.79 Estimated GFR (MDRD) 98.00 BUN/Creatinine Ratio 9.62 Glucose 115.6 H Lactic Acid 1.26 Calcium 9.27 Total Bilirubin 1.05 AST 24.0 ALT 23.3 Alkaline Phosphatase 76.2 Troponin I < 0.012 Total Protein 6.86 Albumin 4.16 Globulin 2.70 Albumin/Globulin Ratio 1.54 Lipase 285.2 Urine Color Yellow Urine Clarity Clear Urine pH 6.5 Ur Specific Laura 1.010 Urine Protein Negative Urine Glucose (UA) Negative Urine Ketones 1+ H Urine Blood Trace-intact H Urine Nitrite Negative Urine Bilirubin Negative Urine Urobilinogen 0.2 Ur Leukocyte Esterase Negative Ur Squamous Epith Cells Not present Imaging Imaging: EXAM: CT OF THE ABDOMEN AND PELVIS WITH CONTRAST FINDINGS: Emphysema of the lung bases. No significant liver abnormality. The adrenals, pancreas and spleen are unremarkable. The stomach and hiatus are unremarkable.Prior cholecystectomy. Normal kidneys and proximal collecting system. The appendix is not seen. Bowel loops demonstrate normal caliber. No inflamatory change seen in the mesentery or retroperitoneum. Atherosclerotic calcification of the aorta without aneurysm. Pelvic genitourinary structures appear normal. Pelvic bowel loops are unremarkable. No inflammatory change in the pelvic fat. No acute abnormality of the abdominal or pelvic skeleton. Impression: 1. No inflammatory process, bowel or urinary obstruction. No acute findings of the abdomen and pelvis. Review Statement Review Statement: I have independently reviewed and interpreted the labs/EKGs/imaging that were ordered by the ER provider. I have reviewed all outside records that are available currently in our EMR including imaging/notes/labs from previous visits. Plan Plan: 1. Symptomatic Hyponatremia - received bolus IVF in ER, continue NS@125mL/hr, telemetry, checking osmolalities and urine sodium, repeat labs in am 2. Gastritis - abd pain and hx consistent, continue home prilosec, adding protonix 40 mg daily, diet as tolerated, zofran and reglan prn 3. COPD - chronic, not in exacerbation, albuterol prn, monitor 4. Hypertension - chronic, stable, continue home medications 5. Hx of PE - continue eliquis DVT Prophylaxis: Eliquis Time Spent: Greater than 80 minutes spent with patient, 50% of the time spent with this patient was devoted to counseling and coordination of care. [facility]annin minutes spent discussing advance care planning. Tobacco Cessation: 5 minutes spent discussing cessation. Disposition: Full code Admit to: Med/Surg Inpatient Discussed Plan of Care with Dr. Mary Mcclendon. Medications Medication Orders: Medications Ordered Category Date Time Status Acetaminophen [Tylenol] Meds 11/06/22 08:11 Active 650 mg PO Q4H PRN Albuterol Sulfate [Ventolin Hfa] Meds 11/06/22 09:20 Active 2 puff IH Q4H PRN Apixaban [Eliquis] Meds 11/06/22 09:30 Active 5 mg PO BID Atorvastatin Calcium [Lipitor] Meds 11/06/22 17:00 Active 40 mg PO QPM Baclofen Meds 11/06/22 09:30 Active 5 mg PO BID Fluticasone Propionate [Flonase] Meds 11/06/22 09:20 Active 1 spray FAHAD DAILY PRN Ketorolac Tromethamine [Toradol] Meds 11/06/22 09:18 Active 15 mg IVP Q6HR PRN Metoclopramide HCl [Reglan] Meds 11/06/22 09:18 Active 10 mg IVP Q6H PRN Metoprolol Succinate [Toprol Xl] Meds 11/06/22 09:30 Active 25 mg PO DAILY Olmesartan Medoxomil [Benicar] Meds 11/06/22 09:30 Active 20 mg PO DAILY Omeprazole [Prilosec] Meds 11/06/22 09:30 Active 20 mg PO BIDAC Ondansetron HCl/Pf [Zofran 4 mg/2 ml] Meds 11/06/22 08:14 Active 4 mg IVP Q6H PRN Pantoprazole Sodium [Protonix] Meds 11/06/22 09:30 Active 40 mg PO QDAC Sodium Chloride 0.9% [Sodium Chloride] 1,000 ml Meds 11/06/22 08:30 Active IV 125 mls/hr
[2022-11-06] MEDS: FLONASE NAS PRN (10:00)
[2022-11-06] MEDS: PRILOSEC PO SCH ×2 (10:02→17:35)
[2022-11-06] MEDS: PROTONIX PO SCH (10:02)
[2022-11-06] MEDS: ELIQUIS PO SCH ×2 (10:02→20:14)
[2022-11-06] MEDS: BACLOFEN PO SCH ×2 (10:03→20:13)
[2022-11-06] MEDS: BENICAR PO SCH (10:03)
[2022-11-06] MEDS: REGLAN IVP PRN ×2 (12:59→20:13)
[2022-11-06] MEDS: TORADOL IVP PRN ×2 (12:59→20:13)
[2022-11-06] MEDS ORDERED: LIPITOR PO SCH (17:00)
[2022-11-06] MEDS: LIPITOR PO SCH (20:11)
[2022-11-06] MEDS: TOPROL XL PO SCH (20:12)
[2022-11-07] MEDS: SODIUM CHLORIDE 1,000 ML IV SCH ×3 (00:19→16:28)
[2022-11-07 05:03] LABS: BASOPHILS % (AUTO) 0.3 % (0.0-3.0); EOSINOPHILS # (AUTO) 0.1 K/ul (0.0-0.7); EOSINOPHILS % (AUTO) 1.6 % (0.0-7.0); HEMATOCRIT 42.3 % (42.0-52.0); HEMOGLOBIN 14.5 g/dl (14.0-18.0); IMMATURE GRANULOCYTE % (AUTO) 0.3 % (0.0-5.0); LYMPHOCYTES # (AUTO) 1.9 K/uL (0.60-3.4); MEAN CORPUSCULAR HEMOGLOBIN 32.3 pg (27.0-31.0); MEAN CORPUSCULAR HGB CONC 34.3 (31.8-35.4); MEAN CORPUSCULAR VOLUME 94.2 fl (80.0-94.0); MONOCYTES # (AUTO) 0.8 K/uL (0.4-2.0); MONOCYTES % (AUTO) 11.3 (0-10); NEUTROPHILS # (AUTO) 4.2 K/ul (2.0-6.9); NEUTROPHILS % (AUTO) 59.5 % (42.2-75.2); PLATELET COUNT 209 10^3/uL (140-440); RDW COEFFICIENT OF VARIATION 13.2 % (11.6-14.8); RED BLOOD COUNT 4.49 10^6/ul (4.70-6.10); WHITE BLOOD COUNT 7.08 K/ul (4.2-10.2)
[2022-11-07 05:16] LABS: ALANINE AMINOTRANSFERASE 41.1 U/L (0-50); ALBUMIN 3.1 g/dL (3.5-5.0); ALKALINE PHOSPHATASE 82.4 U/L (56-119); ASPARTATE AMINO TRANSFERASE 35.3 U/L (17-59); BILIRUBIN,TOTAL 0.88 mg/dL (0.2-1.3); BLOOD UREA NITROGEN 4.6 mg/dL (9-20); CALCIUM 8.46 mg/dL (8.4-10.2); CARBON DIOXIDE 27.1 mmol/L (22-30.0); CREATININE 0.81 mg/dL (0.60-1.10); GLUCOSE 94.9 mg/dL (74-106); POTASSIUM 4.13 mmol/L (3.5-5.1); SODIUM 127.3 mmol/L (134.5-145); TOTAL PROTEIN 5.51 g/dL (6.3-8.2)
[2022-11-07] MEDS: TORADOL IVP PRN ×3 (05:52→20:51)
[2022-11-07] MEDS: PROTONIX PO SCH (05:52)
[2022-11-07] MEDS: PRILOSEC PO SCH (05:53)
[2022-11-07] MEDS: BENICAR PO SCH (08:55)
[2022-11-07] MEDS: BACLOFEN PO SCH ×2 (08:58→20:42)
[2022-11-07] MEDS: SODIUM CHLORIDE PO SCH ×3 (08:58→20:43)
[2022-11-07] MEDS: ELIQUIS PO SCH ×2 (08:59→20:44)
--- NOTE | 2022-11-07 09:31 | PCM.PROG ---
Date/Time Seen Date Seen by Provider: 11/07/22 Time Seen by Provider: 09:00 Provider Provider: LM MARY, [facility] Chief Complaint Chief Complaint: HYPONATNEMIA Subjective Subjective: No events or fever overnight. Epigastric burning still present. Required toradol and reglan overnight. Still feeling weak. Objective Appearance: Positive Well-appearing, Well-nourished, No Apparent Distress and Alert and Oriented x3 Chest/Lungs: Positive Symmetrical With Equal Breath Sounds, Clear to Auscultation Bilaterally and Good Air Movement all 4 Lung Smith Heart: Positive RRR and Pulses Normal GI/: Positive Soft, Bowel Sounds Normal, No Distention, No Organomegaly and Other (epigastric tenderness) Musculoskeletal: Positive Normal Gait and Station Neurological: Positive Sensation Intact, Motor intact, Reflexes Intact, Alert, Oriented and Muscle Strength 5/5 in Upper and Lower Extremities Bilaterally Vital Signs Vital Signs: Vital Signs: Last 24 Hours 11/06/22 14:00 11/06/22 13:00 11/06/22 19:00 Temperature 96.1 F L Temperature Source Temporal Artery Scan Pulse Rate 70 Respiratory Rate 18 Blood Pressure 146/83 H Blood Pressure Mean 104 Blood Pressure Location Right Arm Blood Pressure Position Supine O2 Sat by Pulse Oximetry 98 Oxygen Delivery Method Room Air Telemetry Type Remote Telemetry Remote Telemetry Telemetry Monitoring Continues Continues Telemetry Heart Rate 73 72 EKG [place] Interval 0.2 0.19 EKG QRS Interval 0.1 0.13 H Telemetry Strip Reading SR SR 11/06/22 20:00 11/06/22 21:43 11/07/22 01:00 Temperature 97.6 F Temperature Source Temporal Artery Scan Pulse Rate 76 Respiratory Rate 16 Blood Pressure 126/77 Blood Pressure Mean 93 Blood Pressure Location Right Arm Blood Pressure Position Supine O2 Sat by Pulse Oximetry 96 Oxygen Delivery Method Room Air Room Air Telemetry Type Remote Telemetry Telemetry Monitoring Continues Telemetry Heart Rate 54 L EKG [place] Interval 0.19 EKG QRS Interval 0.13 H Telemetry Strip Reading SB 11/07/22 05:35 11/07/22 07:00 Temperature 97.5 F L Temperature Source Temporal Artery Scan Pulse Rate 62 Respiratory Rate 18 Blood Pressure 148/92 H Blood Pressure Mean 110 Blood Pressure Location Right Arm Blood Pressure Position Supine O2 Sat by Pulse Oximetry 97 Oxygen Delivery Method Room Air Telemetry Type Remote Telemetry Telemetry Monitoring Continues Telemetry Heart Rate 60 EKG IL Interval 0.17 EKG QRS Interval 0.12 H Telemetry Strip Reading NSR BORDERLINE BBB Lab Results Lab Results: Lab Results: Last 24 Hours 11/07/22 11/06/22 04:40 13:50 WBC 7.08 RBC 4.49 L Hgb 14.5 Hct 42.3 MCV 94.2 H MCH 32.3 H MCHC 34.3 RDW Coeff of Carrington 13.2 Plt Count 209 Immature Gran % (Auto) 0.3 Neut % (Auto) 59.5 Lymph % (Auto) 27.0 [place] % (Auto) 11.3 H Eos % (Auto) 1.6 Baso % (Auto) 0.3 Neut # (Auto) 4.2 Lymph # (Auto) 1.9 [place] # (Auto) 0.8 Eos # (Auto) 0.1 Baso # (Auto) 0.0 Immature Gran # (Auto) 0.0 Sodium 127.3 L Potassium 4.13 Chloride 100.0 Carbon Dioxide 27.1 Anion Gap 4.33 BUN 4.6 L Creatinine 0.81 Estimated GFR (MDRD) 95.00 BUN/Creatinine Ratio 5.67 Glucose 94.9 Calcium 8.46 Total Bilirubin 0.88 AST 35.3 ALT 41.1 Alkaline Phosphatase 82.4 Total Protein 5.51 L Albumin 3.10 L Globulin 2.41 Albumin/Globulin Ratio 1.28 Ur Random Sodium <20 Additional Comments Additional Comments: I have independently reviewed and interpreted the labs/EKGs/imaging ordered during this hospital stay. I have reviewed outside records that are available in our EMR that pertain to medical stay including imaging/notes/labs from previous visits. Active Medications Active Medications: Medications Generic Name Dose Route Start Last Admin Trade Name Freq PRN Reason Stop Dose Admin Acetaminophen 650 mg 11/06/22 08:11 Acetaminophen 325 Mg Tablet PO Q4H PRN Mild Pain Albuterol Sulfate 2 puff 11/06/22 09:20 Albuterol Sulfate 8 Gm Inhaler IH Q4H PRN Wheezing Apixaban 5 mg 11/06/22 09:30 11/07/22 08:59 Apixaban 5 Mg Tab PO 5 mg BID [facility] Administration Atorvastatin Calcium 40 mg 11/06/22 21:00 11/06/22 20:11 Atorvastatin Calcium 20 Mg Tablet PO 40 mg BEDTIME [facility] Administration Baclofen 5 mg 11/06/22 09:30 11/07/22 08:58 Baclofen 10 Mg Tablet PO 5 mg BID [facility] Administration Fluticasone Propionate 1 spray 11/06/22 09:20 11/06/22 10:00 Fluticasone Propionate 16 Gm Nasal [place] FAHAD 1 spray DAILY PRN Administration Allergy Symptoms Sodium Chloride 1,000 mls @ 125 mls/hr 11/06/22 08:30 11/07/22 08:20 Sodium Chloride IV 125 mls/hr .Q8H [facility] Administration Ketorolac Tromethamine 15 mg 11/06/22 09:18 11/07/22 05:52 Ketorolac Tromethamine 15 Mg/Ml Vial IVP 11/10/22 09:20 15 mg Q6HR PRN Administration MODERATE PAIN Metoclopramide HCl 10 mg 11/06/22 09:18 11/06/22 20:13 Metoclopramide Hcl 10 Mg/2 Ml IVP 10 mg Q6H PRN Administration Nausea / Vomiting Metoprolol Succinate 25 mg 11/06/22 21:00 11/06/22 20:12 Metoprolol Succinate 25 Mg Tab.Er.24h PO 25 mg BEDTIME [facility] Administration Olmesartan 20 mg 11/06/22 09:30 11/07/22 08:55 Olmesartan Medoxomil 20 Mg Tablet PO 20 mg DAILY [facility] Administration Omeprazole 20 mg 11/06/22 09:30 11/07/22 05:53 Omeprazole 20 Mg Capsule. PO 20 mg BIDAC [facility] Administration Ondansetron HCl 4 mg 11/06/22 08:14 Ondansetron Hcl/Pf 4 Mg/2 Ml Sdv IVP Q6H PRN Nausea / Vomiting Sodium Chloride 1 gm 11/07/22 09:00 11/07/22 08:58 Sodium Chloride 1 Gm Tablet PO 1 gm TID [facility] Administration Plan Plan: 1. Symptomatic Hyponatremia - improving minimally, received bolus IVF in ER, continue NS@125mL/hr, telemetry, checking osmolalities and urine sodium, patient reports that he has not had this issue in the past, added salt tabs TID, repeat labs in am 2. Gastritis - no improvement overnight, switching prilosec to pepcid, increase protonix 40 mg BID, diet as tolerated, zofran and reglan prn, discussed with patient likely need for referral from PCP to GI for EGD if problem persists to r/o ulcer upon discharge 3. COPD - chronic, not in exacerbation, albuterol prn, monitor 4. Hypertension - chronic, stable, continue home medications 5. Hx of PE - continue eliquis DVT Prophylaxis: Eliquis Review Statement Review Statement: I have personally discussed and reviewed the patient's visit/currently labs/imaging/decision making with Dr. Mcclendon, my supervising attending. Greater that 50 minutes spent with patient, 50% of the time spent with this patient was devoted to counseling and coordination of care.
[2022-11-07] MEDS: PEPCID PO SCH ×2 (10:53→16:50)
[2022-11-07] MEDS: REGLAN IVP PRN (10:57)
[2022-11-07 11:15] LABS: AMYLASE 99.9 U/L (30-110); LIPASE 363.1 U/L (23-300)
[2022-11-07] MEDS: ZOFRAN 4 MG/2 ML IVP PRN ×2 (14:26→20:53)
[2022-11-07] MEDS: FLONASE NAS PRN (16:55)
[2022-11-07] MEDS ORDERED: PROTONIX PO SCH (17:00)
[2022-11-07] MEDS: TOPROL XL PO SCH (20:42)
[2022-11-07] MEDS: LIPITOR PO SCH (20:43)
[2022-11-07] MEDS: PROTONIX IV IVP SCH (20:45)
[2022-11-07 21:20] VITALS: RESP 18
[2022-11-08] MEDS: SODIUM CHLORIDE 1,000 ML IV SCH (01:46)
[2022-11-08 05:00] LABS: BASOPHILS % (AUTO) 0.6 % (0.0-3.0); EOSINOPHILS # (AUTO) 0.2 K/ul (0.0-0.7); EOSINOPHILS % (AUTO) 3.2 % (0.0-7.0); HEMATOCRIT 38.8 % (42.0-52.0); HEMOGLOBIN 13.3 g/dl (14.0-18.0); IMMATURE GRANULOCYTE % (AUTO) 0.3 % (0.0-5.0); LYMPHOCYTES # (AUTO) 2.2 K/uL (0.60-3.4); LYMPHOCYTES % (AUTO) 33.1 (10.0-50.0); MEAN CORPUSCULAR HEMOGLOBIN 32.5 pg (27.0-31.0); MEAN CORPUSCULAR HGB CONC 34.3 (31.8-35.4); MEAN CORPUSCULAR VOLUME 94.9 fl (80.0-94.0); MONOCYTES # (AUTO) 0.8 K/uL (0.4-2.0); MONOCYTES % (AUTO) 12.6 (0-10); NEUTROPHILS # (AUTO) 3.3 K/ul (2.0-6.9); NEUTROPHILS % (AUTO) 50.2 % (42.2-75.2); PLATELET COUNT 178 10^3/uL (140-440); RDW COEFFICIENT OF VARIATION 12.9 % (11.6-14.8); RED BLOOD COUNT 4.09 10^6/ul (4.70-6.10)
[2022-11-08 05:12] LABS: ALANINE AMINOTRANSFERASE 29.8 U/L (0-50); ALBUMIN 2.81 g/dL (3.5-5.0); ASPARTATE AMINO TRANSFERASE 24.5 U/L (17-59); BILIRUBIN,TOTAL 1.01 mg/dL (0.2-1.3); BLOOD UREA NITROGEN 4.6 mg/dL (9-20); CALCIUM 8.21 mg/dL (8.4-10.2); CARBON DIOXIDE 26.6 mmol/L (22-30.0); CHLORIDE 100.8 mmol/L (98-107); CREATININE 0.77 mg/dL (0.60-1.10); GLUCOSE 76.9 mg/dL (74-106); POTASSIUM 4.28 mmol/L (3.5-5.1); SODIUM 128.1 mmol/L (134.5-145); TOTAL PROTEIN 5.08 g/dL (6.3-8.2)
[2022-11-08] MEDS: TORADOL IVP PRN (05:33)
[2022-11-08] MEDS: PEPCID PO SCH (05:33)
[2022-11-08 05:37] VITALS: BP 134/83; TEMP 97
[2022-11-08] MEDS: FLONASE NAS PRN (07:48)
[2022-11-08] MEDS: ZOFRAN 4 MG/2 ML IVP PRN (07:54)
[2022-11-08] MEDS: PROTONIX IV IVP SCH (09:36)
[2022-11-08] MEDS: BENICAR PO SCH (09:37)
[2022-11-08] MEDS: SODIUM CHLORIDE PO SCH (09:38)
[2022-11-08] MEDS: BACLOFEN PO SCH (09:39)
[2022-11-08] MEDS: ELIQUIS PO SCH (09:40)
--- NOTE | 2022-11-08 10:21 | DCSUM ---
Admission Date Admission Date: 11/06/22 Discharge Date Discharge Date: 11/08/22 Admission Diagnosis Admission Diagnosis: Symptomatic Hyponatremia Discharge Diagnosis Discharge Diagnosis: Symptomatic Hyponatremia, Gastritis Hospital Provider Hospital [facility] Primary Care Physician Primary Care Physician: BILLIE CISNEROS Summary of History and Physical Summary of History and Physical: 67 yo male presented to the ER with complaints of generalized weakness, abdominal pain, and vomiting. Patient states that his symptoms started on Wednesday with the abdominal pain and vomiting. Has not been able to eat or drink much since the vomiting began that night. States that the pain is in the upper quadrants and epigastric area of his abdomen and describes the pain as a burning. No aggravating or alleviating factors. Has hx of GERD and takes prilosec at home. Also drinks 5 beers daily. Denies any fever, chills, body aches, chest pain, SOB, or diarrhea. Hospital Course Subjective: Throughout course of stay, patient sodium has slowly increased from 126 to 128 with intervention of IV fluids and salt tabs. Patient has a hx of alcohol use and is not aware if this is a chronic problem. He has also had upper quadrant an d epigastric pain and burning which is now resolved with treatment with pepcid and protonix. Treated for gastritis/pancreatitis. Diet advanced to clear liquids and tolerated well. Lipase trended down. Feeling bloated but all other symptoms of weakness and fatigue are minimal. Patient requesting to go home with plans of bowel rest and following up with PCP this week for repeat labs Appearance: Pleasant, No Apparent Distress and Alert HEENT: MMM and Supple CVS: No Murmur and No Rubs Abdomen: Soft, Non-Tender and No Distention Respiratory: No Dyspnea Extremities: No Edema Vital Signs: Most Recent Vital Signs Temperature 97 F L 11/08/22 05:36 Temperature Source Oral 11/08/22 05:36 Temperature Source Infrared 11/06/22 04:33 Pulse Rate 54 L 11/08/22 05:36 Respiratory Rate 18 11/08/22 05:36 Blood Pressure 134/83 11/08/22 05:36 Blood Pressure Mean 100 11/08/22 05:36 Blood Pressure Right Arm 146/85 11/06/22 08:34 Blood Pressure Location Right Arm 11/08/22 05:36 Blood Pressure Position Sitting 11/08/22 05:36 O2 Sat by Pulse Oximetry 98 11/08/22 05:36 Oxygen Delivery Method Room Air 11/08/22 05:36 Height 5 ft 8 in 11/06/22 08:34 Weight 169 lb 12.095 oz 11/06/22 08:34 Telemetry Type Remote Telemetry 11/08/22 07:00 Telemetry Monitoring Continues 11/08/22 07:00 Telemetry Heart Rate 56 L 11/08/22 07:00 EKG FL Interval 0.13 11/08/22 07:00 EKG QRS Interval 0.12 H 11/08/22 07:00 Telemetry Strip Reading BRADYCARDIA WITH BBB 11/08/22 07:00 Lab Results Last 24 Hours: 11/08/22 11/07/22 04:48 04:40 WBC 6.50 RBC 4.09 L Hgb 13.3 L Hct 38.8 L MCV 94.9 H MCH 32.5 H MCHC 34.3 RDW Coeff of Carrington 12.9 Plt Count 178 Immature Gran % (Auto) 0.3 Neut % (Auto) 50.2 Lymph % (Auto) 33.1 Callahan % (Auto) 12.6 H Eos % (Auto) 3.2 Baso % (Auto) 0.6 Neut # (Auto) 3.3 Lymph # (Auto) 2.2 Callahan # (Auto) 0.8 Eos # (Auto) 0.2 Baso # (Auto) 0.0 Immature Gran # (Auto) 0.0 Sodium 128.1 L Potassium 4.28 Chloride 100.8 Carbon Dioxide 26.6 Anion Gap 4.98 BUN 4.6 L Creatinine 0.77 Estimated GFR (MDRD) 101.00 BUN/Creatinine Ratio 5.97 Glucose 76.9 Calcium 8.21 L Total Bilirubin 1.01 AST 24.5 ALT 29.8 Alkaline Phosphatase 64.0 Total Protein 5.08 L Albumin 2.81 L Globulin 2.27 Albumin/Globulin Ratio 1.23 Amylase 99.9 Lipase 148.4 363.1 H Discharge Instructions Discharge Planning: Discharge Planning > 40 minutes Clear liquid diet, advance as tolerated Stop taking prilosec Start taking pepcid daily and protonix daily Start sodium tabs three times a day Activity as tolerated Follow-up with Dr. Cisneros this week with need for referral for GI and repeat labs. Discharge Medications: Medications at Discharge (Home Meds & RX) albuterol sulfate 90 mcg/actuation aerosol inhaler (ProAir HFA) 2 inh inhalation Q4H PRN shortness of breath or wheezing 11/06/22 apixaban 5 mg tablet (Eliquis) 5 mg PO BID 11/06/22 atorvastatin 40 mg tablet 40 mg PO QPM 11/06/22 baclofen 5 mg tablet 5 mg PO BID 11/06/22 cetirizine 10 mg tablet (24Hour Allergy) 10 mg PO DAILY PRN allergy symptoms 11/06/22 fluticasone propionate 50 mcg/actuation nasal spray,suspension (Flonase Allergy Relief) 1 spray intranasal DAILY PRN allergy symptoms 11/06/22 metoprolol succinate 25 mg tablet,extended release 24 hr 25 mg PO DAILY 11/06/22 nitroglycerin 0.4 mg sublingual tablet 0.4 mg sublingual Q5M PRN chest pain 11/06/22 olmesartan 20 mg tablet 20 mg PO DAILY 11/06/22 omeprazole 20 mg capsule,delayed release 20 mg PO BID 11/06/22 Discharge Plan Discharge Activity Restrictions/Additional Instructions: Clear liquid diet, advance as tolerated Stop taking prilosec Start taking pepcid daily and protonix daily Start sodium tabs three times a day Activity as tolerated Follow-up with Dr. Cisneros this week with need for referral for GI and repeat labs. Instructions: Gastritis (GEN), Pancreatitis (GEN), Hyponatremia (GEN) Patient Disposition: HOME SELF-CARE Prescriptions: New famotidine 20 mg Tablet 20 mg PO BIDAC Qty: 60 0RF sodium chloride 1,000 mg Tablet,Soluble 1,000 mg PO TID Qty: 90 0RF pantoprazole 40 mg tablet,delayed release (DR/EC) 40 mg PO DAILY Qty: 30 0RF ondansetron 8 mg tablet,disintegrating 8 mg PO Q8H PRN (Reason: nausea and vomiting) Qty: 20 0RF Continued Eliquis 5 mg tablet 5 mg PO BID Patient Comments: TAKE 1 TABLET BY MOUTH TWICE A DAY baclofen 5 mg tablet 5 mg PO BID Patient Comments: TAKE 1 TABLET BY MOUTH TWICE A DAY atorvastatin 40 mg tablet 40 mg PO QPM Patient Comments: TAKE 1 TABLET BY MOUTH EVERY DAY metoprolol succinate 25 mg tablet extended release 24 hr 25 mg PO DAILY Patient Comments: TAKE 1 TABLET BY MOUTH EVERY DAY olmesartan 20 mg tablet 20 mg PO DAILY Patient Comments: TAKE 1 TABLET BY MOUTH EVERY DAY nitroglycerin 0.4 mg tablet, sublingual 0.4 mg sublingual Q5M PRN (Reason: chest pain) Rx Instructions: do not exceed 3 doses per episode albuterol sulfate [ProAir HFA] 90 mcg/actuation HFA aerosol inhaler 2 inh inhalation Q4H PRN (Reason: shortness of breath or wheezing) cetirizine [24Hour Allergy] 10 mg tablet 10 mg PO DAILY PRN (Reason: allergy symptoms) fluticasone propionate [Flonase Allergy Relief] 50 mcg/actuation spray,suspension 1 spray intranasal DAILY PRN (Reason: allergy symptoms) Rx Instructions: administer into each nostril Discontinued omeprazole 20 mg capsule,delayed release(DR/EC) 20 mg PO BID Patient Comments: TAKE 1 CAPSULE BY MOUTH TWICE A DAY Did you review [place] [employer] for ALL controlled substances?: No Discussed opioids are addictive and Narcan is available by prescription or from pharmacy.: No Condition: Stable
[2022-11-08 18:10] LABS: OSMOLALITY,URINE 262 mOsmol/kg (.); SERUM OSMOLALITY 260 mOsmol/kg (280-301)
== END 2022-11-08 11:50 | disposition home or self-care (01) | DRG 392 ==
LOC: MEDSURG B 04:31 → ED 04:31 → MEDSURG B 08:23
PROVIDERS: ADMIT Hospitalist; ATTEND Nurse Practitioner Family
DX: R53.1 Weakness; Z79.01 Long term (current) use of anticoagulants; J44.9 Chronic obstructive pulmonary disease, unspecified; K29.00 Acute gastritis without bleeding; E87.1 Hypo-osmolality and hyponatremia; I10 Essential (primary) hypertension